=== PATIENT | female | born 1950 | race Caucasian/White ===

== ENCOUNTER → 2016-08-25 | Outpatient (CLI) | payer MEDICARE ==
[~2016-08-25] MED LIST: GLUCOTROL5 MG PO; HUMALOG100 UNIT/2 SQ; HYDROCHLOROTHIA25 MG PO; ISORDIL TAB 3030 MG PO; LANTUS100 UNIT/1 SQ; LEVOTHYROXINE112 MCG PO; LIPITOR TAB 1010 MG PO; NEURONTIN 100100 MG PO; NITROSTAT 0.4100 TAB SL; PLAVIX 75 MG TA75 MG PO; PROTONIX40 MG PO; TOPROL XL25 MG PO
== END ==
LOC: HEART CORB 09:55
DX: I25.10 Atherosclerotic heart disease of native coronary artery without angina pectoris (principal); R07.2 Precordial pain
CPT/HCPCS: 78452; A9502; J2785

== ENCOUNTER → 2016-09-23 | Outpatient (CLI) | payer MEDICARE ==
[~2016-09-23] VITALS: Ht 147.3 cm; Wt 89.8 kg
[2016-09-23 07:41] LABS: RED BLOOD COUNT 4.95 M/UL (4.00-5.10); WHITE BLOOD COUNT 6.6 K/UL (4.5-11.0)
[2016-09-23 08:22] LABS: BUN/CREATININE RATIO 12 (0-10)
== END ==
LOC: CATH 07:00
PROVIDERS: Internal Medicine Interventional Cardiology
DX: R94.39 Abnormal result of other cardiovascular function study (principal); I25.119 Atherosclerotic heart disease of native coronary artery with unspecified angina pectoris; I10 Essential (primary) hypertension; E78.5 Hyperlipidemia, unspecified; E11.9 Type 2 diabetes mellitus without complications; R26.2 Difficulty in walking, not elsewhere classified; I25.2 Old myocardial infarction; I49.9 Cardiac arrhythmia, unspecified; E89.0 Postprocedural hypothyroidism; I51.7 Cardiomegaly; I34.0 Nonrheumatic mitral (valve) insufficiency; K75.81 Nonalcoholic steatohepatitis (NASH); I85.00 Esophageal varices without bleeding; K74.60 Unspecified cirrhosis of liver; Z98.890 Other specified postprocedural states; Z85.828 Personal history of other malignant neoplasm of skin; Z85.038 Personal history of other malignant neoplasm of large intestine; Z88.6 Allergy status to analgesic agent; Z88.5 Allergy status to narcotic agent; Z79.02 Long term (current) use of antithrombotics/antiplatelets; Z79.4 Long term (current) use of insulin; Z79.899 Other long term (current) drug therapy
CPT/HCPCS: 36415; 80048; 82962; 85025; 85347; 85610; 85730; 93005; 93571; C1725; C1769; C1887; J0153; J0583; J1644; J2250; J3010; J7030; Q0163; Q9963